=== PATIENT | male | born 1995 | race Caucasian/White ===

== ENCOUNTER 2017-03-04 08:52 | Emergency (ER) | payer OTHER ==
[~2017-03-04] VITALS: Ht 182.9 cm; Wt 63.5 kg
[~2017-03-04 08:52] MED LIST: ALBUTEROL; FLUT12AE4; LVB125NB3
[2017-03-04] MEDS ORDERED: RT-ALBUTEROL SULF 2.5 MG/3 ML PRE-MIX VIAL ONE (09:13)
[2017-03-04] MEDS ORDERED: RT-IPRATROPIUM (ATROVENT) 0.5MG/2.5ML AMP IH ONE (09:13)
--- NOTE | 2017-03-04 09:23 | ED Respiratory ---
General Chief Complaint: Respiratory Problems Stated Complaint: SOA Nursing Triage Note: PT TO ROOM 6 STATES HAVING ASTHMA ATTACK, PT WHEEZING, SOA, LOW GRADE FEVER. SINCE YESTERDAY. Source: patient Exam Limitations: no limitations History of Present Illness Time seen by provider: 09:10 Initial Comments Patient is a 21-year-old white male brought here in the company of his mother. He reports he has been having increased difficulty in breathing since yesterday. He reports that he has been basically treating himself all night. He uses an albuterol MDI and has Xopenex which he uses and a nebulizer. He has been asthmatic since age 2. He smokes. Timing/Duration: yesterday Prior Episodes/Possible Cause: occasional episodes Modifying Factors: Improves With Albuterol Inhaler, Improves With Albuterol Nebulizer Associated Symptoms: cough, shortness of breath Allergies and Home Medications Allergies Uncoded Allergies: BEVER (Allergy, 03/18/10) CATS (Allergy, 03/18/10) GERBALS (Allergy, 03/18/10) Home Medications Levalbuterol Hcl 1.25 Mg/3 Ml Nebu, 1.25 PRN, (Reported) [Albuterol] , (Reported) Constitutional: see HPI EENTM: no symptoms reported Respiratory: no symptoms reported Cardiovascular: no symptoms reported Gastrointestinal: no symptoms reported Musculoskeletal: no symptoms reported Skin: no symptoms reported Psychiatric/Neurological: No Symptoms Reported Hematologic/Lymphatic: No Symptoms Reported Immunological/Allergic: no symptoms reported Past Ustcyyo-Wntixn-Amovze Hx Patient Social History Alcohol Use: Occasionally Uses Recreational Drug Use: No Smoking Status: Current Everyday Smoker Type Used: Cigarettes Recent Foreign Travel: No Contact w/Someone Who Travel: No Recent Infectious Disease Expo: No Recent Hopitalizations: No Physical Abuse: No Sexual Abuse: No Respiratory History of Respiratory Disorde: Yes Respiratory Disorders: Asthma Psychosocial Suicide Risk Score: 0 Physical Exam Vital Signs Vital Sign - Last 12Hours 03/04/17 08:55 Temp 100.1 Pulse 137 Resp 22 B/P (MAP) 103/84 Pulse Ox 98 O2 Delivery Room Air Capillary Refill : Less Than 3 Seconds General Appearance: moderate distress Eyes: Bilateral Eye Normal Inspection Neck: full range of motion Respiratory: decreased breath sounds Cardiovascular: tachycardia Gastrointestinal: normal bowel sounds, non tender, soft, no organomegaly, no pulsatile mass Extremities: normal range of motion, non-tender, normal inspection, no pedal edema, no calf tenderness, normal capillary refill, pelvis stable Neurologic/Psychiatric: infrastructure tech II-XII nml as tested, no motor/sensory deficits, alert, normal mood/affect, oriented x 3 Progress/Results/Core Measures Suspected Sepsis Recent Fever Within 48 Hours: No Infection Criteria Present: None New/Unexplained Altered Menta: No Sepsis Screen: No Definite Risk Sepsis Diagnosis: SIRS Temperature:100.1 Pulse: 137 Respiratory Rate: 22 Laboratory Tests 03/04/17 09:00: White Blood Count 8.1 Blood Pressure 103 /84 Mean: 90 Laboratory Tests 03/04/17 09:00: Platelet Count 255 Results/Orders Lab Results Laboratory Tests Test 03/04/17 09:00 Range/Units White Blood Count 8.1 4.3-11.0 10^3/uL Red Blood Count 4.83 4.35-5.85 10^6/uL Hemoglobin 15.1 13.3-17.7 G/DL Hematocrit 44 40-54 % Mean Corpuscular Volume 92 80-99 FL Mean Corpuscular Hemoglobin 31 25-34 PG Mean Corpuscular Hemoglobin Concent 34 32-36 G/DL Red Cell Distribution Width 12.9 10.0-14.5 % Platelet Count 255 130-400 10^3/uL Mean Platelet Volume 10.3 7.4-10.4 FL Neutrophils (%) (Auto) 68 42-75 % Lymphocytes (%) (Auto) 15 12-44 % Monocytes (%) (Auto) 14 H 0-12 % Eosinophils (%) (Auto) 3 0-10 % Basophils (%) (Auto) 0 0-10 % Neutrophils # (Auto) 5.5 1.8-7.8 X 10^3 Lymphocytes # (Auto) 1.2 1.0-4.0 X 10^3 Monocytes # (Auto) 1.1 H 0.0-1.0 X 10^3 Eosinophils # (Auto) 0.3 0.0-0.3 10^3/uL Basophils # (Auto) 0.0 0.0-0.1 10^3/uL My Orders Orders - VILMA RODRIGUEZ MD Rt Request For Service (03/04/17 09:08) Albuterol/Ipra Inhalation Soln (Duoneb I (03/04/17 09:30) Svn Sm Volume Nebulizer Rt-Rfs (03/04/17 09:18) Ipratropium 0.02% Neb Solution (Atrovent (03/04/17 09:13) Albuterol Pre-Mix Nebs (Rt) (Proventil (03/04/17 09:13) Methylprednisolone Sod Succ (Solu-Medrol (03/04/17 10:00) Cbc With Automated Diff (03/04/17 09:58) Chest 1 View, Ap/Pa Only (03/04/17 09:58) Medications Given in ED Current Medications Medications Dose Ordered Sig/Bruno Route Start Time Stop Time Status Last Admin Dose Admin Albuterol Sulfate 2.5 mg STK-MED ONCE .ROUTE 03/04/17 09:13 03/04/17 09:23 DC 03/04/17 09:26 15 MG Ipratropium [place] 0.5 mg STK-MED ONCE IH 03/04/17 09:13 03/04/17 09:22 DC 03/04/17 09:26 0.5 MG Methylprednisolone Sodium Succinate 125 mg ONCE ONCE IVP 03/04/17 10:00 03/04/17 10:01 DC 03/04/17 11:13 125 MG Vital Signs/I&O Vital Sign - Last 12Hours 03/04/17 03/04/17 08:55 09:27 Temp 100.1 Pulse 137 Resp 22 B/P (MAP) 103/84 Pulse Ox 98 99 O2 Delivery Room Air Room Air Capillary Refill : Less Than 3 Seconds Blood Pressure Mean: 90 Departure Communication (Admissions) Progress Notes 10 00 reevaluation shows better air movement and now wheezing. 1134 the patient reports he is breathing much more easily but is so bored. His mother reports that today she believes him to be much more comfortable as well. He has new prescriptions of Xopenex and albuterol at home. Impression Impression: Primary Impression: asthma exacerbation Disposition: HOME, SELF-CARE Condition: Improved Departure-Patient Inst. Decision time for Depature: 11:33 Referrals: NO,LOCAL PHYSICIAN (PCP) Primary Care Physician Patient Instructions: Asthma, Adult (DC) Add. Discharge Instructions: All discharge instructions reviewed with patient and/or family. Voiced understanding. Prednisone to be taken 60 mg at supper time and then to begin taper as described in the prescription. See your provider if further problems Albuterol or Xopenex as required to control symptoms. Scripts Prednisone (Prednisone) 20 Mg Tab 20 MG PO DAILY, #22 TAB Take 3 tabs(60mg)daily,decrease by 1/2 tab(10mg)every other day. Prov: VILMA RODRIGUEZ MD 03/04/17 VILMA RODRIGUEZ MD Mar 04, 2017 09:23
[2017-03-04] MEDS ORDERED: RT-ALBUTEROL/IPRATROPIUM 3 ML (DUONEB) VIAL INH ONE (09:30)
[2017-03-04] MEDS ORDERED: methylPREDNISolone 125 MG (Solu-MEDROL) VIAL IVP ONE (10:00)
[2017-03-04 10:05] LABS: BASOPHILS % (AUTO) 0 % (0-10); EOSINOPHILS # (AUTO) 0.3 10^3/uL (0.0-0.3); EOSINOPHILS % (AUTO) 3 % (0-10); LYMPHOCYTES # (AUTO) 1.2 X 10^3 (1.0-4.0); LYMPHOCYTES % (AUTO) 15 % (12-44); MEAN CORPUSCULAR HEMOGLOBIN 31 PG (25-34); MEAN CORPUSCULAR HGB CONC 34 G/DL (32-36); MEAN CORPUSCULAR VOLUME 92 FL (80-99); MEAN PLATELET VOLUME 10.3 FL (7.4-10.4); MONOCYTES # (AUTO) 1.1 X 10^3 (0.0-1.0); MONOCYTES % (AUTO) 14 % (0-12); NEUTROPHILS # (AUTO) 5.5 X 10^3 (1.8-7.8); NEUTROPHILS % (AUTO) 68 % (42-75); PLATELET COUNT 255 10^3/uL (130-400); RED BLOOD COUNT 4.83 10^6/uL (4.35-5.85); RED CELL DISTRIBUTION WIDTH 12.9 % (10.0-14.5); WHITE BLOOD COUNT 8.1 10^3/uL (4.3-11.0)
[2017-03-04] MEDS ORDERED: PRD20T PO (11:35)
[2017-03-04 11:43] VITALS: BP 108/70
--- NOTE | 2017-03-04 14:27 | Diagnostic Imaging Report ---
Portable upright radiograph of the chest. INDICATION: Asthma. Wheezing and shortness of breath. FINDINGS: The lungs are clear. The heart size is normal. No effusion or pneumothorax. The mediastinum and dottie appear unremarkable. IMPRESSION: Unremarkable exam. Dictated by: Dictated on workstation # [id number]
== END 2017-03-04 11:42 | disposition home or self-care (01) ==
LOC: EDUNIT# 08:52 → ER 08:54
DX: J45.901 Unspecified asthma with (acute) exacerbation (principal); F17.210 Nicotine dependence, cigarettes, uncomplicated
CPT/HCPCS: 36415; 71010; 85025; 94640; 94644; 99282